=== PATIENT | female | born 1995 | race Caucasian/White ===

== ENCOUNTER 2025-07-05 09:29 | Outpatient (CLI) | payer BC, SELFPAY ==
[2025-07-07 00:11] LABS: HPV Source Cervix
[2025-07-10 08:39] LABS: Pap Test Screened Manually Done
== END 2025-07-05 09:30 | disposition home or self-care (01) ==
PROVIDERS: Visit Provider Obstetrics & Gynecology
DX: Z01.419 Encounter for gynecological examination (general) (routine) without abnormal findings (principal); E78.5 Hyperlipidemia, unspecified; Z13.6 Encounter for screening for cardiovascular disorders
CPT/HCPCS: 80061; 82947; 87624; 87625; 88141; 88142; 88175